=== PATIENT | female | born 1995 | race African-American/Black ===

== ENCOUNTER 2020-11-14 13:20 | Emergency (ER) | payer OTHER ==
[~2020-11-14] VITALS: Ht 162.6 cm; Wt 131.5 kg
[2020-11-14 13:29] VITALS: Ht 162.6 cm; Wt 131.5 kg
[2020-11-14 14:19] LABS: BASOPHIL % 0.5 % (0.2-1.3)
[2020-11-14 14:25] LABS: PLATELET COUNT 82 x10^3mcL (179-408); rbc morphology (normal/abnorm) NORMAL (NORMAL)
[2020-11-14 15:53] LABS: FREE T4 1.97 ng/dL (0.76-1.46); FREE THYROXINE INDEX 4.8 ug/dL (1.4-4.5); T4(THYROXINE) 11.7 ug/dL (4.7-13.3)
[2020-11-14 16:10] LABS: ALKALINE PHOSPHATASE 88 U/L (46-116); ALT/SGPT 18 U/L (14-59); AST/SGOT 16 U/L (15-37); CALCIUM 9.2 mg/dL (8.5-10.1); CARBON DIOXIDE 20.1 mmol/L (21-32); CHLORIDE SERUM 106 mmol/L (98-107); CREATININE SERUM 0.9 mg/dL (0.6-1.0); GFR1 > 60 mL/min; POTASSIUM SERUM 3.3 mmol/L (3.5-5.1); SODIUM SERUM 141 mmol/L (136-145)
[2020-11-14 16:27] LABS: BILIRUBIN TOTAL 0.4 mg/dL (0.20-1.00); GLUCOSE SERUM 136 mg/dL (74-106); TOTAL PROTEIN, SERUM 6.6 g/dL (6.4-8.2)
[2020-11-14 16:29] LABS: ALBUMIN 3.3 g/dL (3.4-5.0)
[2020-11-14 17:27] LABS: T3 TOTAL 1.04 ng/mL
[2020-11-14 19:05] VITALS: BP 98/59
== END 2020-11-14 19:05 | disposition home or self-care (01) ==
LOC: ED 13:20
PROVIDERS: Emergency Medicine
DX: K52.9 Noninfective gastroenteritis and colitis, unspecified (principal); R00.1 Bradycardia, unspecified; E03.9 Hypothyroidism, unspecified; R55 Syncope and collapse; Z20.828 Contact with and (suspected) exposure to other viral communicable diseases
CPT/HCPCS: 84439; J2405; J7030